=== PATIENT | female | born 1975 | race Caucasian/White ===

== ENCOUNTER 2021-08-11 16:38 | Inpatient (IN) | payer MEDICAID, SELFPAY ==
[2021-08-11] VITALS (7 sets, daily range): BP systolic 90–117; BP diastolic 50–91; PULSE 80–102; RESP 14–17; TEMP 36.3–36.8; O2SAT 96–99; BMI 21.5
[2021-08-11 17:02] LABS: Absolute Lymphocyte Count 2.47 X10^3/uL (0.83-4.51); Absolute Neutrophil Count 2.1 X10^3/uL (2.0-7.7); Basophil# 0.05 X10^3/uL; Basophil% 0.9 % (0-1); Eosinophil# 0.33 X10^3/uL; Eosinophils% 5.9 % (0-5); Hematocrit 44.2 % (37-47); Hemoglobin 14.9 g/dL (12.0-15.0); Lymphocyte # 2.47 X10^3/ul (0.83-4.51); Lymphocyte % 44.2 % (19-41); Mean Corp Hgb Conc 33.7 g/dL (32-36); Mean Corpuscular Volume 91.9 fL (81-99); Mean Platelet Vol. 9.6 fl (6.2-12.0); Monocyte# 0.68 X10^3/uL; Monocyte% 12.2 % (0-10); NRBC Flagged by Analyzer 0 % (0-5); Neutrophil # 2.05 X10^3/uL (2.7-7.7); Neutrophil % 36.6 % (47-70); Platelet Count 272 K/mm3 (150-450); RBC Distribution Width CV 14.7 % (11.6-14.6); Red Blood Count 4.81 M/mm3 (4.2-5.4); White Blood Count 5.6 K/mm3 (4.4-11.0)
[2021-08-11] MEDS: Naloxone 2 MG/2 ML Syringe 1 MG IV ×2 (17:04→17:21)
[2021-08-11 17:11] LABS: Bedside Glucose 97 mg/dL (74-106)
--- NOTE | 2021-08-11 18:14 | EDS_ITS ---
HPI History of Present Illness Chief Complaint: Substance Abuse Detail of Chief Complaint: Alcohol abuse Informant: patient and spouse/S.O. Narrative Narrative: Patient presents with secondary to alcohol abuse and request for detox. I was asked to come urgently to room 1 to evaluate the patient. Nursing staff advises that they walked into triage and the patient passed out. As I entered the room patient was responding with moaning and opening her eyes. She would answer some questions. She becomes tearful and states that she needs help getting off of the alcohol. She does have repeated episodes of syncope in the ER room. She is on the case monitor the entire time with no change in cardiac rhythm or saturation. [facility] Medical History Alcohol abuse Anxiety Bipolar 1 disorder Depression Diabetes Hypothyroidism PTSD (post-traumatic stress disorder) Schizophrenia Home Medications Unobtainable 08/11/21 [History Last Taken Unknown] Allergy/AdvReac Type Severity Reaction Status Date / Time Penicillins Allergy PT UNSURE Verified 08/11/21 16:58 OF REACTION Surgical History Hx of breast implants, bilateral Social History Smoking Status: Current every day smoker tobacco type: cigarettes ROS ROS ED Review of Systems ROS Unobtainable: due to mental condition EXAM Physical Exam Const Vital Signs: 08/11/21 16:44 08/11/21 17:15 08/11/21 17:53 Temperature 97.9 F Temperature Source Temporal Pulse Rate 96 92 91 Respiratory Rate 14 16 16 Blood Pressure 117/91 H 92/60 Blood Pressure Mean 99 70 Oxygen Delivery Method Room Air Room Air Room Air Positive well nourished and well developed General Appearance ED: well developed HEENT Reports moist mucous membranes Eyes PERRL and EOMs intact bilaterally Neck supple Chest Wall inspection of chest normal and palpation of chest normal Resp normal respiratory effort and clear to auscultation bilaterally Cardio regular rate and regular rhythm GI soft to palpation and non-tender Extremity General Extremety ED: Negative for tenderness Neuro Neuro Narrative: Patient has purposeful movements. She will awaken for short periods and answer questions and then fall back asleep. is at bedside trying to keep her awake. Skin Lesions: no lesions Rashes: no rashes MDM MDM MDM Narrative Medical decision making narrative: Ammonia capsule was used to try to wake patient. IV lines were established and she is given IV fluids. Lab work obtained. I was able to review a recent note from when she presented to [facility] to obtain her history. Lab Data Attestation: I reviewed the patient's lab results. Labs: Laboratory Results - last 24 hr 08/11/21 08/11/21 08/11/21 16:55 16:55 17:06 WBC 5.6 RBC 4.81 Hgb 14.9 Hct 44.2 MCV 91.9 MCH 31.0 MCHC 33.7 RDW Std Deviation 50.0 H RDW Coeff of Mai 14.7 H Plt Count 272 MPV 9.6 Immature Gran % (Auto) 0.200 Neut % (Auto) 36.6 L Lymph % (Auto) 44.2 H [place] % (Auto) 12.2 H Eos % (Auto) 5.9 H Baso % (Auto) 0.9 Absolute Neuts (auto) 2.1 Absolute Lymphs (auto) 2.47 Nucleated RBC % 0 Sodium Cancelled Potassium Cancelled Chloride Cancelled Carbon Dioxide Cancelled Anion Gap Cancelled BUN Cancelled Creatinine Cancelled Estim Creat Clear Calc Cancelled Est GFR (MDRD) Af Amer Cancelled Est GFR (MDRD) Non-Af Cancelled BUN/Creatinine Ratio Cancelled Glucose Cancelled Calcium Cancelled Total Bilirubin Cancelled AST Cancelled ALT Cancelled Alkaline Phosphatase Cancelled Total Protein Cancelled Albumin Cancelled Globulin Cancelled Albumin/Globulin Ratio Cancelled Ur Drug Screen Comment POC Glucose 97 08/11/21 18:00 WBC RBC Hgb Hct MCV MCH MCHC RDW Std Deviation RDW Coeff of Mai Plt Count MPV Immature Gran % (Auto) Neut % (Auto) Lymph % (Auto) [place] % (Auto) Eos % (Auto) Baso % (Auto) Absolute Neuts (auto) Absolute Lymphs (auto) Nucleated RBC % Sodium Potassium Chloride Carbon Dioxide Anion Gap BUN Creatinine Estim Creat Clear Calc Est GFR (MDRD) Af Amer Est GFR (MDRD) Non-Af BUN/Creatinine Ratio Glucose Calcium Total Bilirubin AST ALT Alkaline Phosphatase Total Protein Albumin Globulin Albumin/Globulin Ratio Ur Drug Screen Comment POC Glucose Treatment and Re-Evaluation Narrative: Patient has been straight cath. We are awaiting urine tox screen at this time. She was given a total of 2 mg of Narcan to see if that would change her level of alertness. At this time she is alert and answering questions. Hospitalist has seen the patient and she will be admitted for further treatment. She will need to be reassessed by social work when clinically sober. Discharge Plan Triage Chief Complaint: Substance Abuse ED Provider: Rebecca Keyes Dx/Rx/DC Orders Clinical Impression: Alcohol intoxication, Desire for detoxification Prescriptions: No Action Unobtainable RF: 0 Primary Care Provider: Care Physician,No Primary Referrals: Care Physician,No Primary [Primary Care Provider] - Disposition Disposition: Acute Care Hospital [facility]
--- NOTE | 2021-08-11 18:20 | CM.ED ---
Addendum entered by Milagros Albert 08/11/21 18:29: Per staff patient was most recently at [facility]. Milagros WEATHERS Addendum entered by Milagros Price 08/11/21 18:26: DONY provided patient with [facility] Healthcare Provider Directory and Where to GO when. This information was provided to patient's . Milagros WEATHERS Original Note: DONY Note Reason for referral: Detox Referral Source: Case Find DONY met with patient and her . Patient said that she is at the hospital for detox. Patient said that she drinks a garbage bag full of alcohol. Patient said that she drinks 20 packs a day.Patient's said that patient quit for 2 weeks. Patient reports that she has been drinking since last summer. Patient said that she has been drinking since last night and this morning and all day. Patient said that she drank alcohol in the car on the way to the ED. Patient then stated that she is suicidal and wants to . Patient does appear to be under the influence of alcohol when making this statement. Patient then said that the detox is getting bad and asked how long she will be in detox. DONY explained that the decision on discharge is made by the MD and treatment team. DONY updated CANELO Leigh that patient had voiced SI statements. Yesy said that patient had done this at her recent hospitalization. DONY updated MD Keyes. She stated that patient had reported this when she was seen at [facility]. Patient needs to be not under the influence of alcohol to be accurately and appropriately accessed for suicide risk. Plan: Reassess for Suicide Risk Milagros Price
[2021-08-11 18:46] LABS: Amphetamine Urine VISTA NEGATIVE (<1000 ng/mL); Barbiturate Urine VISTA NEGATIVE (< 200 ng/mL); Benzodiazepine Urine VISTA POSITIVE (< 200 ng/mL); Cocaine Urine VISTA NEGATIVE (< 300 ng/mL); Ecstacy Urine VISTA NEGATIVE (< 500 ng/mL); Methadone Urine VISTA NEGATIVE (< 300 ng/mL); PCP Urine VISTA NEGATIVE (< 25 ng/mL); THC Urine VISTA NEGATIVE (< 50 ng/mL); Vista UDS pH Range 6
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
--- NOTE | 2021-08-11 18:53 | CM.ED ---
Social Work Note SW placed a call to Treatment Navigator and updated Cecy on pt's admission to [facility]. Yesy Green GLASS SAGGER, DIRECTOR OF HUMAN RESOURCES
[2021-08-11 18:54] LABS: AST(SGOT) 39 U/L (15-37); Alanine Aminotransfer ALT/SGPT 43 U/L (13-56); Albumin, Serum 3.3 g/dL (3.2-5.0); Alkaline Phosphatase 166 U/L (45-117); Anion Gap 7 (5-15); BUN 6 mg/dL (7-18); Calcium,Total 7.7 mg/dL (8.5-10.1); Chloride 118 mmol/L (98-107); EST Glomerular Filtration Rate 140 mL/min (>60); Est Glom Filt Rate - Afr Amer 170 mL/min (>60); Estimated Creatinine Clearance 135.26 ml/min; Globulin 3.2 g/dL (2.2-4.2); Glucose 85 mg/dL (74-106); Potassium 3.6 mmol/L (3.5-5.1); Protein, Total 6.5 g/dL (6.4-8.2); Sodium Level 145 mmol/L (136-145)
--- NOTE | 2021-08-11 19:42 | NURSING ---
Per Dr. Alston, pt has hx of bipolar and schizophrenia, she has benzos in her system, she was difficult to wake in the ED and had to be given meds to counteract it. Advised to give prn meds cautiously tonight. Will monitor closely.
[2021-08-11] MEDS: Pantoprazole Sodium 40 MG Tablet PO (20:25)
[2021-08-11] MEDS: Phenobarbital 32.4 MG Tablet 64.8 MG PO (20:25)
[2021-08-11] MEDS: Acetaminophen 500 MG Tablet PO (20:25)
[2021-08-11] MEDS: Ondansetron 8 MG Tablet PO (21:55)
[2021-08-11] MEDS: MELATONIN 10 MG TABLET PO (22:27)
[2021-08-11] MEDS: OLANZapine 10 MG Tablet 15 MG PO (22:27)
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
[2021-08-12] MEDS: Phenobarbital 32.4 MG Tablet 64.8 MG PO ×6 (00:09→20:15)
[2021-08-12 05:50] VITALS: BP 89/49; PULSE 62; RESP 16; TEMP 36.6; O2SAT 96
[2021-08-12] MEDS: Levothyroxine 25 MCG TABLET PO (05:51)
[2021-08-12 07:25] VITALS: BP 91/55; PULSE 60; RESP 16; TEMP 36.6; O2SAT 96
[2021-08-12] MEDS: Thiamine Hydrochloride 100 MG Tablet PO (08:29)
[2021-08-12] MEDS: Folic Acid 1 MG Tablet PO (08:29)
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
[2021-08-12] MEDS: Sertraline 100 MG Tablet 150 MG PO (10:55)
[2021-08-12] MEDS: Pantoprazole Sodium 40 MG Tablet PO (10:55)
[2021-08-12 13:25] VITALS: BP 109/51; PULSE 83; RESP 18; TEMP 36.8; O2SAT 93
--- NOTE | 2021-08-12 15:12 | CHAPLAIN ---
Type of Pastoral Visit _x__ Initial Visit ___ Follow-up Visit ___ On-call Visit ___ General Patient Visit ___ Spiritual Assessment ___ Family Conference ___ Bereavement ___ Rapid Response ___ Code Blue ___ Other (describe below) Pastoral Care Referral From _x__ Patient ___ Family ___ Nurse ___ Physician ___ Junior Copywriter ___ Tree Farmer ___ Other (describe below) Sacrament/Intervention _x__ Active listening ___ Anointing ___ Scientology ___ Bereavement ___ Communion ___ Kayla exploration ___ _x__ Life review _x__ Prayer ___ Reconciliation ___ Sacrament of Sick _x__ Supportive presence ___ Wedding ___ Other (describe below) Pastoral Comments patient describes some of her life story and that she is basically alone because everyone has given up on me; pt has a but also states he doesn't take care of himself, he probably isn't going to live long, and I don't know if I'm going to stay there with him anyway; asked about plans and hopes the patient could only say that she 'will go to [facility] for the IOP because I've heard it is good there'; pt states that she believes in the power of prayer and so prayer and presence are given; pt states several times thank you
[2021-08-12 16:42] VITALS: BP 97/59; PULSE 84; RESP 16; TEMP 36.9; O2SAT 97
[2021-08-12] MEDS: MELATONIN 10 MG TABLET PO (22:20)
[2021-08-12] MEDS: OLANZapine 10 MG Tablet 15 MG PO (22:22)
[2021-08-12 22:53] VITALS: BP 109/63; PULSE 79; RESP 16; TEMP 36.9; O2SAT 98
[2021-08-13] MEDS: Phenobarbital 32.4 MG Tablet 64.8 MG PO ×6 (00:38→20:22)
[2021-08-13] MEDS: Levothyroxine 25 MCG TABLET PO (04:43)
[2021-08-13 04:53] VITALS: BP 102/68; PULSE 66; RESP 16; TEMP 36.8; O2SAT 97
[2021-08-13 07:57] VITALS: BP 121/69; PULSE 66; RESP 16; TEMP 36.8; O2SAT 99
[2021-08-13] MEDS: Thiamine Hydrochloride 100 MG Tablet PO (08:02)
[2021-08-13] MEDS: Folic Acid 1 MG Tablet PO (08:02)
[2021-08-13] MEDS: Pantoprazole Sodium 40 MG Tablet PO (08:02)
--- NOTE | 2021-08-13 10:11 | PCM.PN.HOSP ---
Subjective Subjective Resting comfortably however she is still scoring out of 5 on the CIWA scales Objective Data Objective Data Vital Signs: Vital Signs Temp Pulse Resp BP Pulse Ox 98.2 F 66 16 121/69 H 99 08/13/21 07:57 08/13/21 07:57 08/13/21 07:57 08/13/21 07:57 08/13/21 07:57 Oxygen Delivery Method Room Air Weight: 137 lb 9.6 oz Body Mass Index (BMI) 21.5 Intake & Output: Intake and Output for Last 24 Hours 08/12/21 08/13/21 08/14/21 03:59 03:59 03:59 Intake Total 500 / 500 950 / 950 Output Total 1600 / 1600 800 / 800 Balance -1100 / -1100 150 / 150 Lab / Micro Data Result Diagrams: 08/11/21 16:55 08/11/21 17:51 Physical Exam Const alert, oriented x3 and no apparent distress General Appearance: cooperative HEENT normocephalic and moist oral mucous membranes Eyes PERRL, EOMs intact bilaterally and conjunctivae normal Neck supple and no JVD Resp normal respiratory effort, no retractions, no use of accessory muscles and clear to auscultation bilaterally Auscultation: Negative for crackles, rales, rhonchi or wheezes Cardio regular rate, regular rhythm, S1 normal heart sound, S2 normal heart sound and no murmurs GI soft to palpation, non-tender and non-distended; Negative for hepatosplenomegaly Extremity no clubbing, cyanosis or edema Skin no rashes or lesions noted Neuro no focal motor deficits and no sensory deficits noted Psych Mood & Affect: anxious and flat affect Assessment & Plan Assessment/Plan (1) Alcohol intoxication: PLAN: 1. Alcohol intoxication/history of bipolar disorder/possible schizophrenia ? Continue with the alcohol withdrawal protocol ? Have her follow-up with 180 for outpatient management ? Continue with her home Zoloft and olanzapine 2. Hypothyroidism ? Stable ? Continue with Synthroid 3. GERD ? Stable ? Continue with PPI DVT: Ambulation Charges/Coding Visit Charges Inpatient E&M: 90516 Subs Hosp L2
[2021-08-13] MEDS: Sertraline 100 MG Tablet 150 MG PO (12:09)
[2021-08-13 16:30] VITALS: BP 102/66; PULSE 76; RESP 14; TEMP 36.7; O2SAT 97
[2021-08-13] MEDS: MELATONIN 10 MG TABLET PO (22:23)
[2021-08-13] MEDS: OLANZapine 10 MG Tablet 15 MG PO (22:23)
[2021-08-13 22:28] VITALS: BP 102/67; PULSE 79; RESP 16; TEMP 36.3; O2SAT 97
[2021-08-14] MEDS: Phenobarbital 32.4 MG Tablet 64.8 MG PO ×3 (00:19→10:12)
[2021-08-14 04:30] VITALS: BP 104/63; PULSE 71; RESP 16; TEMP 36.6; O2SAT 95
[2021-08-14] MEDS: Levothyroxine 25 MCG TABLET PO (06:22)
[2021-08-14] MEDS: Thiamine Hydrochloride 100 MG Tablet PO (08:43)
[2021-08-14] MEDS: Pantoprazole Sodium 40 MG Tablet PO (08:43)
[2021-08-14] MEDS: Sertraline 100 MG Tablet 150 MG PO (08:43)
[2021-08-14] MEDS: Folic Acid 1 MG Tablet PO (08:43)
[2021-08-14 08:57] VITALS: BP 101/61; PULSE 63; RESP 14; TEMP 36.2; O2SAT 99
--- NOTE | 2021-08-14 11:54 | PCM.DC ---
Discharge Instructions Diet Discharge Diet: No restrictions Activity Discharge Activity: Return to Normal Activity Dressing / Incision Call your doctor if you observe: Fever of 101 or Higher, Shortness of breath, Dizziness, Fainting spells, Swelling in the ankles, Chest pain and Increased palpitations (irregular heartbeat) Follow Up Care Test Results: Test results from this visit will be discussed in further detail at your follow-up appointment, if applicable. Discharge Plan Admission Admit Date/Time: 08/11/21 19:36 Attending Provider: Mc Juarez Primary Care Provider: Care Physician,Chapis Primary Consulting Providers: Jey Alston Discharge Orders/Prescriptions Prescriptions: Continued sertraline 100 mg tablet 150 mg PO DAILY RF: 0 hydroxyzine pamoate 50 mg capsule 50 mg PO TID PRN (Reason: Anxiety) RF: 0 levothyroxine 25 mcg tablet 25 mcg PO DAILY RF: 0 pantoprazole 40 mg tablet,delayed release (DR/EC) 40 mg PO DAILY RF: 0 olanzapine 15 mg tablet 15 mg PO QHS RF: 0 melatonin 5 mg tablet 10 mg PO QHS RF: 0 Referrals / Follow Up: Care Physician,No Primary [Primary Care Provider] - Disposition Disposition (needs filled in before D/C Order can be placed): Home, Self Care
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
== END 2021-08-14 14:06 | disposition home or self-care (01) | DRG 775 ==
LOC: ED 18:20 → MS3 19:48
PROVIDERS: Admitting Provider Internal Medicine; Emergency Provider Emergency Medicine; Visit Provider Family Medicine
DX: F10.129 Alcohol abuse with intoxication, unspecified (principal); F31.9 Bipolar disorder, unspecified; E03.9 Hypothyroidism, unspecified; E11.9 Type 2 diabetes mellitus without complications; F20.9 Schizophrenia, unspecified; F17.210 Nicotine dependence, cigarettes, uncomplicated; K21.9 Gastro-esophageal reflux disease without esophagitis; Y90.8 Blood alcohol level of 240 mg/100 ml or more
CPT/HCPCS: 80053; 80307; 82077; 82962; 85025; 97802; 99284; J7030; A4216

== ENCOUNTER 2023-02-21 13:44 | Emergency (ER) | payer MEDICAID, SELFPAY ==
[2023-02-21 13:46] VITALS: BP 109/74; PULSE 82; RESP 14; TEMP 36.8; O2SAT 98; BMI 25.3
--- NOTE | 2023-02-21 13:51 | NURSING ---
NO OLD EKGS
--- NOTE | 2023-02-21 14:25 | EKG12_ITS ---
Test Reason : SYNCOPE Blood Pressure : / mmHG Vent. Rate : 081 BPM Atrial Rate : 081 BPM P-R Int : 124 ms QRS Dur : 078 ms QT Int : 406 ms P-R-T Axes : 039 012 025 degrees QTc Int : 471 ms Normal sinus rhythm with sinus arrhythmia Normal ECG Confirmed by MAXIMINO LAWRENCE, AL ([id number]), editor continuity and script PATTIE HERRERA ([id number]) on 02/22/2023 10:42:42 AM Referred By: ADDISON Confirmed By:AL STANTON MD
[2023-02-21 14:36] LABS: Mucous, Urine 0 SEEN /hpf (<or=2+); Red Blood Cells-Urine 0 SEEN /hpf (0-5)
[2023-02-21 14:37] LABS: Color, Urine Yellow (Yellow); Glucose, Dipstick Normal (Normal); Ketone-Dipstick Negative (Negative); Leukocyte Esterase-Dipstick 25 /ul (Negative); Nitrite-Dipstick Negative (Negative); Occult Blood-Urine Negative /ul (Negative); Protein-Dipstick Negative (Negative); Urine Bilirubin Dipstick Negative (Negative); Urine Clarity Sl. Cloudy (Clear); Urine Urobilinogen Normal (Normal); Urine pH 6.5 (5.0 - 8.0)
--- NOTE | 2023-02-21 14:39 | EDS_ITS ---
HPI <STEPHANIE Mason - Last Filed: 02/21/23 16:51> History of Present Illness Chief Complaint: Palpitations Narrative Narrative: Patient presenting today due to multiple vague complaints. She reports that she is concerned that she could have a UTI as she has been having dysuria and urinary frequency for the past 2 weeks. She reports that she did develop a rash in her groin recently as well. She has also been experiencing heart palpitations intermittently over the past few days. She reports that she is staying in a [facility] sober living house and does drink a lot of caffeine while there. She also took herself off of her Lexapro and olanzapine because, I want Parker to heal me. She reports that since being off of her medication, she has felt more fatigued but denies any SI, HI, thoughts of self-harm, or hallucinations. She reports that he is also felt intermittently lightheaded over the past few days, she has not had any syncopal episodes. She denies any fever, chills, chest pain, shortness of breath, abdominal pain, nausea, and vo miting. PFSH <STEPHANIE Mason - Last Filed: 02/21/23 16:51> [facility] Medical History Alcohol abuse Anxiety Bipolar 1 disorder Depression Diabetes Hypothyroidism PTSD (post-traumatic stress disorder) Schizophrenia Home Medications hydroxyzine pamoate 50 mg capsule 50 mg PO TID PRN Anxiety 08/11/21 [History Last Taken Unknown] levothyroxine 25 mcg tablet 25 mcg PO DAILY thyroid 08/11/21 [History Last Taken 08/11/21] melatonin 5 mg tablet 10 mg PO QHS sleep 08/11/21 [History Last Taken 08/10/21] olanzapine 15 mg tablet 15 mg PO QHS sleep 08/11/21 [History Last Taken Unknown] pantoprazole 40 mg tablet,delayed release 40 mg PO DAILY gerd 08/11/21 [History Last Taken Unknown] sertraline 100 mg tablet 150 mg PO DAILY mood 08/11/21 [History Last Taken 08/11/21] Allergy/AdvReac Type Severity Reaction Status Date / Time Penicillins Allergy PT UNSURE Verified 02/21/23 13:45 OF REACTION Surgical History Hx of breast implants, bilateral Social History Smoking Status: Current every day smoker tobacco type: cigarettes ROS <STEPHANIE Mason - Last Filed: 02/21/23 16:51> ROS ED Constitutional Constitutional ED: Denies chills or fever(s) Cardiovascular Cardiovascular: Reports palpitations; Denies chest pain Respiratory/Chest Respiratory/Chest: Denies cough or dyspnea Gastrointestinal Gastrointestinal: Denies abdominal pain, nausea or vomiting Genitourinary Genitourinary ED: Reports dysuria and urinary frequency; Denies hematuria Musculoskeletal Musculoskeletal: Denies arthralgias or myalgias Integumentary Reports rash Neurologic Neurologic: Denies weakness Psychiatric Psychiatric: Denies anxiety, depression, suicidal ideation or suicidal thoughts EXAM <STEPHANIE Mason - Last Filed: 02/21/23 16:51> Physical Exam Const Vital Signs: 02/21/23 13:46 Temperature 98.2 F Temperature Source Temporal Pulse Rate 82 Respiratory Rate 14 Blood Pressure 109/74 Blood Pressure Mean 85 Pulse Ox 98 Oxygen Delivery Method Room Air Positive well nourished, well developed and no apparent distress General Appearance ED: well developed HEENT Reports normocephalic and head/scalp atraumatic Mouth ED: Yes moist mucous membranes normal Eyes PERRL and EOMs intact bilaterally Neck full ROM and supple Chest Wall inspection of chest normal Resp normal respiratory effort and clear to auscultation bilaterally Cardio regular rate and regular rhythm GI soft to palpation, non-tender, non-distended and no masses Back/Spine normal ROM and normal to inspection Extremity normal to inspection and full ROM Neuro oriented x3, CN's II-XII intact bilaterally, moves all extremities, no focal motor deficits and no sensory deficits noted Sensorium / Orientation: awake and alert Psych mental status grossly normal and thought process normal Skin no rashes or lesions noted and no wounds <Dr. Sylvester Donovan, - Last Filed: 02/21/23 16:15> Physical Exam Const Vital Signs: 02/21/23 13:46 Temperature 98.2 F Temperature Source Temporal Pulse Rate 82 Respiratory Rate 14 Blood Pressure 109/74 Blood Pressure Mean 85 Pulse Ox 98 Oxygen Delivery Method Room Air MDM <STEPHANIE Mason - Last Filed: 02/21/23 16:51> [facility] MDM Narrative Medical decision making narrative: Patient presenting with multiple vague complaints. She has had intermittent heart palpitations over the past few days, she reports that she does drink a lot of caffeine, she is not experiencing any chest pain or shortness of breath. She has no cardiac history or history of arrhythmias. She has also been experiencing dysuria and increased urinary frequency. She denies any concern for STDs. Reports that she does have a history of herpes. She complains of a rash in her groin, however on examination, I do not appreciate any rash, active herpes outbreak, or erythema. Patient also reports she has been feeling intermittently lightheaded. She did take herself off of her medication for her bipolar disorder recently that she had been on for years without discussing this with her PCP. I did encourage her to contact her PCP for a follow-up appointment as these medications should not be stopped abruptly. She is not experiencing any SI or HI. Labs obtained to rule out leukocytosis, anemia, electrolyte abnormality, ACS, and UTI. Chest x-ray obtained to rule out cardiopulmonary abnormality and is negative for any acute findings. Labs overall are unremarkable. She will be discharged home in stable condition and is comfortable with plan. Lab Data Attestation: I reviewed the patient's lab results. Labs: Laboratory Results - last 24 hr 02/21/23 02/21/23 02/21/23 14:32 15:03 15:03 WBC Cancelled Corrected WBC Cancelled RBC Cancelled Hgb Cancelled Hct Cancelled MCV Cancelled MCH Cancelled MCHC Cancelled RDW Std Deviation Cancelled RDW Coeff of Mai Cancelled Plt Count Cancelled MPV Cancelled Immature Gran % (Auto) Cancelled Neut % (Auto) Cancelled Lymph % (Auto) Cancelled [place] % (Auto) Cancelled Eos % (Auto) Cancelled Baso % (Auto) Cancelled Absolute Neuts (auto) Cancelled Absolute Lymphs (auto) Cancelled Total Counted Cancelled Neutrophils % (Manual) Cancelled Band Neutrophils % Cancelled Lymphocytes % (Manual) Cancelled Monocytes % (Manual) Cancelled Eosinophils % (Manual) Cancelled Basophils % (Manual) Cancelled Metamyelocytes % Cancelled Myelocytes % Cancelled Promyelocytes % Cancelled Blast Cells % Cancelled Plasma Cell % (Manual) Cancelled Other Cells % Cancelled Nucleated RBC % Cancelled Nucleated RBCs/100 WBC Cancelled Differential Comment Cancelled Diff Path Review Cancelled Hypersegmented Neuts Cancelled Atypical Lymphocytes Cancelled Reactive Lymphocytes Cancelled Smudge Cells Cancelled Toxic Granulation Cancelled Toxic Vacuolation Cancelled Dohle Bodies Cancelled David Rods Cancelled Platelet Estimate Cancelled Plt Morphology Comment Cancelled RBC Morphology Cancelled Cancelled Polychromasia Cancelled Hypochromasia Cancelled Poikilocytosis Cancelled Basophilic Stippling Cancelled Anisocytosis Cancelled Microcytosis Cancelled Macrocytosis Cancelled Spherocytes Cancelled Sickle Cells Cancelled Target Cells Cancelled Tear Drop Cells Cancelled Ovalocytes Cancelled Stomatocytes Cancelled Schulte-Bellmore Bodies Cancelled Dg Cells Cancelled Bite Cells Cancelled Crenated Cell Cancelled Acanthocytes (Spur) Cancelled Rouleaux Cancelled Schistocytes Cancelled Sodium 142 Potassium 4.2 Chloride 110 H Carbon Dioxide 23.0 Anion Gap 9 BUN 4 L Creatinine 0.79 Estim Creat Clear Calc 80.64 Est GFR (MDRD) Af Amer 99 Est GFR (MDRD) Non-Af 82 BUN/Creatinine Ratio 5.1 L Glucose 90 Calcium 9.4 Troponin I High Sens 6 Urine Color Yellow Urine Clarity Sl. Cloudy Urine pH 6.5 Ur Specific [place] 1.010 Urine Protein Negative Urine Glucose (UA) Normal Urine Ketones Negative Urine Occult Blood Negative Urine Nitrite Negative Urine Bilirubin Negative Urine Urobilinogen Normal Ur Leukocyte Esterase 25 H Urine RBC 0 SEEN Urine WBC 0-5 SEEN Ur Squamous Epith Cells 10-25 SEEN Urine Bacteria 1+ Urine Mucus 0 SEEN 02/21/23 15:47 WBC 7.4 Corrected WBC RBC 4.91 Hgb 14.8 Hct 44.5 MCV 90.6 MCH 30.1 MCHC 33.3 RDW Std Deviation 41.9 RDW Coeff of Mai 12.5 Plt Count 246 MPV 10.4 Immature Gran % (Auto) 0.100 Neut % (Auto) 53.7 Lymph % (Auto) 37.1 [place] % (Auto) 6.0 Eos % (Auto) 2.6 Baso % (Auto) 0.5 Absolute Neuts (auto) 4.0 Absolute Lymphs (auto) 2.74 Total Counted Neutrophils % (Manual) Band Neutrophils % Lymphocytes % (Manual) Monocytes % (Manual) Eosinophils % (Manual) Basophils % (Manual) Metamyelocytes % Myelocytes % Promyelocytes % Blast Cells % Plasma Cell % (Manual) Other Cells % Nucleated RBC % 0 Nucleated RBCs/100 WBC Differential Comment Diff Path Review Hypersegmented Neuts Atypical Lymphocytes Reactive Lymphocytes Smudge Cells Toxic Granulation Toxic Vacuolation Dohle Bodies David Rods Platelet Estimate Plt Morphology Comment RBC Morphology Polychromasia Hypochromasia Poikilocytosis Basophilic Stippling Anisocytosis Microcytosis Macrocytosis Spherocytes Sickle Cells Target Cells Tear Drop Cells Ovalocytes Stomatocytes Schulte-[place] Bodies [place] Cells Bite Cells Crenated Cell Acanthocytes (Spur) Rouleaux Schistocytes Sodium Potassium Chloride Carbon Dioxide Anion Gap BUN Creatinine Estim Creat Clear Calc Est GFR (MDRD) Af Amer Est GFR (MDRD) Non-Af BUN/Creatinine Ratio Glucose Calcium Troponin I High Sens Urine Color Urine Clarity Urine pH Ur Specific [place] Urine Protein Urine Glucose (UA) Urine Ketones Urine Occult Blood Urine Nitrite Urine Bilirubin Urine Urobilinogen Ur Leukocyte Esterase Urine RBC Urine WBC Ur Squamous Epith Cells Urine Bacteria Urine Mucus Radiography X-Ray: Read by ED Physician and Read by Radiologist Diagnostic Testing: Clinical Impression(s) from Imaging Studies Chest X-Ray 02/21/23 15:05 IMPRESSION: No acute abnormality is seen. Electronically Signed: Nicko Patiño MD at 15:30 EST , EKG Initial EKG: Comments: 81 bpm, normal sinus rhythm with sinus arrhythmia, no ST elevation <Dr. Sylvester Donovan, DO - Last Filed: 02/21/23 16:15> [facility] Lab Data Labs: Laboratory Results - last 24 hr 02/21/23 02/21/23 02/21/23 14:32 15:03 15:03 WBC Cancelled Corrected WBC Cancelled RBC Cancelled Hgb Cancelled Hct Cancelled MCV Cancelled MCH Cancelled MCHC Cancelled RDW Std Deviation Cancelled RDW Coeff of Mai Cancelled Plt Count Cancelled MPV Cancelled Immature Gran % (Auto) Cancelled Neut % (Auto) Cancelled Lymph % (Auto) Cancelled [place] % (Auto) Cancelled Eos % (Auto) Cancelled Baso % (Auto) Cancelled Absolute Neuts (auto) Cancelled Absolute Lymphs (auto) Cancelled Total Counted Cancelled Neutrophils % (Manual) Cancelled Band Neutrophils % Cancelled Lymphocytes % (Manual) Cancelled Monocytes % (Manual) Cancelled Eosinophils % (Manual) Cancelled Basophils % (Manual) Cancelled Metamyelocytes % Cancelled Myelocytes % Cancelled Promyelocytes % Cancelled Blast Cells % Cancelled Plasma Cell % (Manual) Cancelled Other Cells % Cancelled Nucleated RBC % Cancelled Nucleated RBCs/100 WBC Cancelled Differential Comment Cancelled Diff Path Review Cancelled Hypersegmented Neuts Cancelled Atypical Lymphocytes Cancelled Reactive Lymphocytes Cancelled Smudge Cells Cancelled Toxic Granulation Cancelled Toxic Vacuolation Cancelled Dohle Bodies Cancelled David Rods Cancelled Platelet Estimate Cancelled Plt Morphology Comment Cancelled RBC Morphology Cancelled Cancelled Polychromasia Cancelled Hypochromasia Cancelled Poikilocytosis Cancelled Basophilic Stippling Cancelled Anisocytosis Cancelled Microcytosis Cancelled Macrocytosis Cancelled Spherocytes Cancelled Sickle Cells Cancelled Target Cells Cancelled Tear Drop Cells Cancelled Ovalocytes Cancelled Stomatocytes Cancelled Schulte-[place] Bodies Cancelled Dg Cells Cancelled Bite Cells Cancelled Crenated Cell Cancelled Acanthocytes (Spur) Cancelled Rouleaux Cancelled Schistocytes Cancelled Sodium 142 Potassium 4.2 Chloride 110 H Carbon Dioxide 23.0 Anion Gap 9 BUN 4 L Creatinine 0.79 Estim Creat Clear Calc 80.64 Est GFR (MDRD) Af Amer 99 Est GFR (MDRD) Non-Af 82 BUN/Creatinine Ratio 5.1 L Glucose 90 Calcium 9.4 Troponin I High Sens 6 Urine Color Yellow Urine Clarity Sl. Cloudy Urine pH 6.5 Ur Specific [place] 1.010 Urine Protein Negative Urine Glucose (UA) Normal Urine Ketones Negative Urine Occult Blood Negative Urine Nitrite Negative Urine Bilirubin Negative Urine Urobilinogen Normal Ur Leukocyte Esterase 25 H Urine RBC 0 SEEN Urine WBC 0-5 SEEN Ur Squamous Epith Cells 10-25 SEEN Urine Bacteria 1+ Urine Mucus 0 SEEN 02/21/23 15:47 WBC 7.4 Corrected WBC RBC 4.91 Hgb 14.8 Hct 44.5 MCV 90.6 MCH 30.1 MCHC 33.3 RDW Std Deviation 41.9 RDW Coeff of Mai 12.5 Plt Count 246 MPV 10.4 Immature Gran % (Auto) 0.100 Neut % (Auto) 53.7 Lymph % (Auto) 37.1 [place] % (Auto) 6.0 Eos % (Auto) 2.6 Baso % (Auto) 0.5 Absolute Neuts (auto) 4.0 Absolute Lymphs (auto) 2.74 Total Counted Neutrophils % (Manual) Band Neutrophils % Lymphocytes % (Manual) Monocytes % (Manual) Eosinophils % (Manual) Basophils % (Manual) Metamyelocytes % Myelocytes % Promyelocytes % Blast Cells % Plasma Cell % (Manual) Other Cells % Nucleated RBC % 0 Nucleated RBCs/100 WBC Differential Comment Diff Path Review Hypersegmented Neuts Atypical Lymphocytes Reactive Lymphocytes Smudge Cells Toxic Granulation Toxic Vacuolation Dohle Bodies David Rods Platelet Estimate Plt Morphology Comment RBC Morphology Polychromasia Hypochromasia Poikilocytosis Basophilic Stippling Anisocytosis Microcytosis Macrocytosis Spherocytes Sickle Cells Target Cells Tear Drop Cells Ovalocytes Stomatocytes Schulte-Bellmore Bodies [place] Cells Bite Cells Crenated Cell Acanthocytes (Spur) Rouleaux Schistocytes Sodium Potassium Chloride Carbon Dioxide Anion Gap BUN Creatinine Estim Creat Clear Calc Est GFR (MDRD) Af Amer Est GFR (MDRD) Non-Af BUN/Creatinine Ratio Glucose Calcium Troponin I High Sens Urine Color Urine Clarity Urine pH Ur Specific [place] Urine Protein Urine Glucose (UA) Urine Ketones Urine Occult Blood Urine Nitrite Urine Bilirubin Urine Urobilinogen Ur Leukocyte Esterase Urine RBC Urine WBC Ur Squamous Epith Cells Urine Bacteria Urine Mucus Radiography Diagnostic Testing: Clinical Impression(s) from Imaging Studies Chest X-Ray 02/21/23 15:05 IMPRESSION: No acute abnormality is seen. Electronically Signed: Nicko Patiño MD at 15:30 EST , Treatment and Re-Evaluation :: I have personally performed a face to face assessment of the patient and have reviewed the ANGELIA Note. I performed a substantive portion of the visit including all aspects of the following. My [place]wood findings include: History: Patient presents with palpitations and possible urinary tract infection that has been getting worse over the past 2 nights. Patient states it is gradually getting worse. Patient states her symptoms have been constant. Patient states nothing makes them better and nothing makes them worse. Patient admits to some subjective chills but denies any fevers. Exam: Vital signs are stable. Patient is afebrile. Patient is in no acute distress. Oral mucosa is pink and moist. Neck is supple. Trachea is midline. There is no JVD. Heart was regular rate and rhythm. Lungs are clear and equal bilaterally. Abdomen is soft. Bowel sounds are normal. There is no tenderness. Cranial nerves II through XII are intact. There are no focal motor or sensory deficits noted. Medical Decision Making: Differential diagnosis includes cardiac dysrhythmia, cardiac ischemia, urinary tract infection, pneumonia, and electrolyte abnormality. EKG will be obtained to assess for cardiac dysrhythmia and cardiac ischemia. Chest x-ray will be obtained to assess for pneumonia and pneumothorax. CBC will be obtained to assess for leukocytosis and anemia. Basic metabolic profile will be obtained to assess for electrolyte abnormality and renal function. High-sensitivity troponin will be obtained to assess for cardiac ischemia. CBC was reviewed and was within normal limits. Basic metabolic profile was reviewed and was essentially within normal limits. High-sensitivity troponin was reviewed and was normal. Urinalysis was reviewed. There are 10-25 epithelial cells and 1+ bacteria. There is no evidence of urinary tract infection however. Portable 1 view chest x-ray was obtained. On my independent interpretation, lung esparza are clear. There is normal cardiac silhouette. Bony thorax is normal. There is no acute process noted. Radiologist also interpreted the x-ray and agrees. EKG was obtained. On my independent interpretation, it showed a normal sinus rhythm with a rate of 81. OH interval, QRS interval, and QTc intervals were all normal. Filer was normal. There are no acute ST or T wave changes. The patient was advised of her findings. Patient has a HEART score of 2. Patient was advised that this is low risk for acute cardiac event. Patient was instructed to follow-up with her primary care physician in 5 to 7 days. Patient was instructed return if worse in any way. Patient understood and was agreeable with the plan. All questions were answered. Discharge Plan Triage Chief Complaint: Palpitations ED Midlevel Provider: Annalise Grimes ED Provider: Sylvester Donovan Dx/Rx/DC Orders Clinical Impression: Palpitations, Dysuria, Nonadherence to medication Instructions: ED Dysuria, Uncertain Cause (Adult), ED Palpitations Prescriptions: No Action sertraline 100 mg tablet 150 mg PO DAILY Patient Comments: TAKE 1 TABLET BY MOUTH DAILY WITH FOOD hydroxyzine pamoate 50 mg capsule 50 mg PO TID PRN (Reason: Anxiety) Patient Comments: TAKE 1 CAPSULE BY MOUTH UP TO THREE TIMES DAILY NEEDED FOR ANXIETY OR SLEEP levothyroxine 25 mcg tablet 25 mcg PO DAILY Patient Comments: take 1 tablet by mouth EVERY DAY AT 6 AM pantoprazole 40 mg tablet,delayed release (DR/EC) 40 mg PO DAILY olanzapine 15 mg tablet 15 mg PO QHS Patient Comments: take 1 tablet by mouth at bedtime for MOOD and sleep melatonin 5 mg tablet 10 mg PO QHS Patient Comments: TAKE 2 TABLET BY MOUTH NIGHTLY Primary Care Provider: Care Physician,No Primary Referrals: Care Physician,No Primary [Primary Care Provider] - Activity Restrictions/Additional Instructions: Please follow-up with your PCP, return for any worsening of your symptoms. Disposition Disposition: Home, Self Care Discharge Date/Time: 02/21/23 16:35
[2023-02-21 14:42] LABS: White Blood Cells 0-5 SEEN /hpf (0-5)
[2023-02-21 14:43] LABS: Bacteria 1+ /hpf (None Seen); Squamous Epithelial Cells - UA 10-25 SEEN /hpf (5-10)
--- NOTE | 2023-02-21 15:05 | RAD_ITS ---
STUDY: X-RAY CHEST REASON FOR EXAM: Female, 47 years old. Palpitations TECHNIQUE: Single AP portable view of the chest. COMPARISON: None. FINDINGS: The lungs are clear and expanded. There is no demonstrated pleural abnormality. Normal size heart. Normal mediastinum and ashley. Normal visualized pulmonary arteries. Normal visualized aortic arch and descending thoracic aorta. Normal visualized thoracic spine. Healed right rib fracture. There is no demonstrated abnormality of the visualized soft tissue structures of the upper abdomen. RAD/Chest 1 View (Portable) IMPRESSION: No acute abnormality is seen. Electronically Signed: Nicko Patiño MD at 15:30 EST ,
[2023-02-21 15:29] LABS: Anion Gap 9 (5-15); BUN 4 mg/dL (7-18); BUN/Creat Ratio 5.1 RATIO (10-20); Calcium,Total 9.4 mg/dL (8.5-10.1); Chloride 110 mmol/L (98-107); Creatinine, Serum 0.79 mg/dL (0.55-1.02); EST Glomerular Filtration Rate 82 mL/min (>60); Est Glom Filt Rate - Afr Amer 99 mL/min (>60); Estimated Creatinine Clearance 80.64 ml/min; Glucose 90 mg/dL (74-106); Potassium 4.2 mmol/L (3.5-5.1); Sodium Level 142 mmol/L (136-145); Troponin-I HS 6 pg/mL (3.0-54.0)
[2023-02-21 15:58] LABS: Absolute Lymphocyte Count 2.74 X10^3/uL (0.83-4.51); Basophil# 0.04 X10^3/uL; Basophil% 0.5 % (0-1); Eosinophil# 0.19 X10^3/uL; Eosinophils% 2.6 % (0-5); Hematocrit 44.5 % (37-47); Hemoglobin 14.8 g/dL (12.0-15.0); Lymphocyte # 2.74 X10^3/ul (0.83-4.51); Lymphocyte % 37.1 % (19-41); Mean Corp Hgb Conc 33.3 g/dL (32-36); Mean Corpuscular Hgb 30.1 pg (27.0-32.0); Mean Corpuscular Volume 90.6 fL (81-99); Mean Platelet Vol. 10.4 fl (6.2-12.0); Monocyte# 0.44 X10^3/uL; NRBC Flagged by Analyzer 0 % (0-5); Neutrophil # 3.97 X10^3/uL (2.7-7.7); Neutrophil % 53.7 % (47-70); Platelet Count 246 K/mm3 (150-450); RBC Distribution Width CV 12.5 % (11.6-14.6); RBC Distribution Width SD 41.9 fl (35.1-43.9); Red Blood Count 4.91 M/mm3 (4.2-5.4); White Blood Count 7.4 K/mm3 (4.4-11.0)
== END 2023-02-21 16:35 | disposition home or self-care (01) ==
PROVIDERS: Physician Assistant; Emergency Provider Emergency Medicine; Visit Provider Emergency Medicine
DX: R00.2 Palpitations (principal); F31.9 Bipolar disorder, unspecified; E11.9 Type 2 diabetes mellitus without complications; R30.0 Dysuria; Z91.148 Patient's other noncompliance with medication regimen for other reason; F17.210 Nicotine dependence, cigarettes, uncomplicated; E03.9 Hypothyroidism, unspecified; F43.10 Post-traumatic stress disorder, unspecified; Z79.899 Other long term (current) drug therapy
CPT/HCPCS: 36415; 71045; 80048; 81001; 84484; 85025; 93005; 99282